=== PATIENT | female | born 1950 | race Caucasian/White ===

== ENCOUNTER 2018-08-26 12:35 | Outpatient (CLI) | payer MEDICARE ==
--- NOTE | 2018-08-26 16:49 | BD ---
DEXA SCAN 08/26/18 PROVIDED CLINICAL HISTORY: Postmenopausal screening. FINDINGS: Comparison 07/10/17. Lumbar Spine: BMD (g/cm2) L1 0.856 T-Score: -1.2 L2 0.939 T-Score: -0.8 L3 0.937 T-Score: -1.3 L4 0.964 T-Score: -0.9 L1-L4 0.927 T-Score: -1.1 Femoral Neck: 0.527 T-Score: -2.9 Total Femur: 0.694 T-Score: -2 Ten year fracture risk: Major osteoporotic fracture is 16%. Hip fracture is 4.8%. Impression: Calculated bone mineral density meets WHO criteria for osteoporosis and placed the patient at promine nt increased risk for fracture. POS: BLU
== END 2018-08-26 12:36 | disposition home or self-care (01) ==
LOC: BICMAMMO 12:35
PROVIDERS: ATTEND Family Medicine
DX: M81.0 Age-related osteoporosis without current pathological fracture (principal)
CPT/HCPCS: 77063; 77067; 77080

== ENCOUNTER 2019-11-09 12:39 | Outpatient (CLI) | payer MEDICARE ==
--- NOTE | 2019-11-09 15:19 | MMO ---
Bilateral MAMMO Bilat Screen [facility]. CLINICAL HISTORY: Patient is 69 years old and is seen for screening. The patient has no family history of breast cancer. The patient has no personal history of cancer. VIEWS: The views performed were: bilateral craniocaudal with tomosynthesis; bilateral mediolateral oblique with tomosynthesis; bilateral exaggerated craniocaudal; and right mediolateral oblique. FILMS COMPARED: The present examination has been compared to prior imaging studies performed at [facility] on 08/26/2018, and at [facility] on 12/21/2013, 02/08/2015 and 08/19/2017. This study has been interpreted with the assistance of computer-aided detection. MAMMOGRAM FINDINGS: There are scattered fibroglandular densities. There are no suspicious masses, suspicious calcifications, or new areas of architectural distortion. IMPRESSION: THERE IS NO MAMMOGRAPHIC EVIDENCE OF MALIGNANCY. A ROUTINE FOLLOW-UP MAMMOGRAM IN 1 YEAR IS RECOMMENDED. THE RESULTS OF THIS EXAM WERE SENT TO THE PATIENT. ACR BI-RADS Category 1 - Negative MAMMOGRAPHY NOTE: 1. A negative mammogram report should not delay a biopsy if a dominant of clinically suspicious mass is present. 2. Approximately 10% to 15% of breast cancers are not detected by mammography. 3. Adenosis and dense breasts may obscure an underlying neoplasm. Reported by: CHRISTOPHER BLACKWELL MD Electonically Signed: [id number]
== END 2019-11-09 12:40 | disposition home or self-care (01) ==
LOC: BICMAMMO 12:39
PROVIDERS: ATTEND Family Medicine
DX: Z12.31 Encounter for screening mammogram for malignant neoplasm of breast (principal)
CPT/HCPCS: 77063; 77067

== ENCOUNTER 2021-01-15 10:52 | Outpatient (CLI) | payer MEDICARE ==
--- NOTE | 2021-01-15 11:53 | MMO ---
Bilateral MAMMO Bilat Screen [facility]. CLINICAL HISTORY: Patient is 70 years old and is seen for screening. The patient has no family history of breast cancer. The patient has no personal history of cancer. VIEWS: The views performed were: bilateral craniocaudal with tomosynthesis and bilateral mediolateral oblique with tomosynthesis. FILMS COMPARED: The present examination has been compared to prior imaging studies performed at [facility] on 08/26/2018 and 11/09/2019, and at [facility] on 02/08/2015 and 08/19/2017. This study has been interpreted with the assistance of computer-aided detection. MAMMOGRAM FINDINGS: There are scattered fibroglandular densities. There are no suspicious masses, suspicious calcifications, or new areas of architectural distortion. IMPRESSION: THERE IS NO MAMMOGRAPHIC EVIDENCE OF MALIGNANCY. A ROUTINE FOLLOW-UP MAMMOGRAM IN 1 YEAR IS RECOMMENDED. THE RESULTS OF THIS EXAM WERE SENT TO THE PATIENT. ACR BI-RADS Category 1 - Negative MAMMOGRAPHY NOTE: 1. A negative mammogram report should not delay a biopsy if a dominant of clinically suspicious mass is present. 2. Approximately 10% to 15% of breast cancers are not detected by mammography. 3. Adenosis and dense breasts may obscure an underlying neoplasm. Reported by: CRISTIAN HERNANDEZ MD Electonically Signed: [id number]
--- NOTE | 2021-01-16 07:04 | BD ---
EXAM: DEXA bone density examination HISTORY: 70-year-old postmenopausal female for screening COMPARISON: None FINDINGS: L1--bone mineral density 0.888 g/sq cm; T score -0.9 L2--bone mineral density 0.887 g/sq cm; T score -1.3 L3--bone mineral density 1.075 g/sq cm; T score -0.1 L4--bone mineral density 1.167 g/sq cm; T score 1.0 Total L1-L4--bone mineral density 1.011 g/sq cm; T score -0.3 Left femoral neck--bone mineral density0.526; T score -2.9 Total proximal left femur--bone mineral density 0.669; T score -2.2 IMPRESSION: Osteoporosis.
== END 2021-01-15 10:53 | disposition home or self-care (01) ==
LOC: BICMAMMO 10:52
PROVIDERS: ATTEND Family Medicine
DX: Z12.31 Encounter for screening mammogram for malignant neoplasm of breast (principal); M81.0 Age-related osteoporosis without current pathological fracture
CPT/HCPCS: 77063; 77067; 77080

== ENCOUNTER 2022-09-26 11:44 | Outpatient (CLI) | payer MEDICARE | END 2022-09-26 11:45 | disposition home or self-care (01) | LOC: BICRAD 11:44 | PROVIDERS: ATTEND Nurse Practitioner Family | DX: R07.89 Other chest pain (principal) | CPT/HCPCS: 71046 ==